=== PATIENT | female | born 1955 | race Caucasian/White ===

== ENCOUNTER 2023-03-25 06:10 | Day surgery (SDC) | payer OTHER, BC ==
[2023-03-24 10:36] VITALS: BMI 30.7
[2023-03-25] MEDS ORDERED: EPINEPHrine 1:1,000 1,000 MCG/ML ML ONE ×2 (07:25→09:00)
[2023-03-25] MEDS ORDERED: FENTANYL CITRATE/PF 50 MCG/ML VIAL ONE (07:38)
[2023-03-25] MEDS ORDERED: MIDAZOLAM HCL 2 MG/2 ML SINGLE DOSE VIAL ONE (07:38)
[2023-03-25] MEDS ORDERED: ROPIVACAINE HCL 0.5% 30ML VIAL ONE (07:38)
[2023-03-25] MEDS ORDERED: INSULIN (NOVOLOG) ASPART 100 UNITS/ML 10ML VIAL SQ ONE ×2 (07:58→11:38)
[2023-03-25] MEDS ORDERED: LIDOCAINE HCL/PF 2% SDV 5ML VIAL ONE (08:02)
[2023-03-25] MEDS ORDERED: PROPOFOL 40 ML ONE (08:02)
[2023-03-25] MEDS ORDERED: ONDANSETRON 4 MG/2 ML VIAL IVPUSH PRN (09:41)
[2023-03-25] MEDS ORDERED: LACTATED RINGERS SOLUTION 1,000 ML IV SCH (09:45)
[2023-03-25 11:54] VITALS: RESP 16; TEMP 97.4
[2023-03-25 12:47] VITALS: BP 111/50; PULSE 77
== END 2023-03-25 13:20 | disposition home or self-care (01) ==
LOC: FASU 06:10
PROVIDERS: ATTEND Orthopaedic Surgery
PROC: 0LB24ZZ Excision of Left Shoulder Tendon, Percutaneous Endoscopic Approach (ICD-10-PCS; principal; 2023-03-25 08:27)
DX: M75.102 Unspecified rotator cuff tear or rupture of left shoulder, not specified as traumatic (principal); M75.02 Adhesive capsulitis of left shoulder; M75.42 Impingement syndrome of left shoulder; M65.812 Other synovitis and tenosynovitis, left shoulder
CPT/HCPCS: 29827; C1776; C9781; 82962; 94760; C1713